=== PATIENT | female | born 1985 | race Caucasian/White ===

== ENCOUNTER 2024-05-10 06:14 | Day surgery (SDC) | payer OTHER ==
[2024-05-09 13:39] LABS: HEMATOCRIT 34.6 % (36.0-45.00); HEMOGLOBIN 11.1 g/dL (12.0-15.00); MEAN CELL VOLUME 77.3 fL (80.00-100.00); MEAN CORPUSCULAR HEMOGLOBIN 24.9 pg (27.00-32.0); MEAN CORPUSCULAR HGB CONC 32.2 g/dl (32.0-36.0); PLATELET COUNT 221 K/uL (150-450); RED BLOOD COUNT 4.48 M/uL (4.00-6.00); RED CELL DISTRIBUTION WIDTH 15.6 % (11.5-14.5)
[2024-05-09 14:18] LABS: INR 0.98; PARTIAL THROMBOPLASTIN TIME 25.6 SECONDS (22.0-34.0); PROTHROMBIN TIME 10.7 SECONDS (9.0-11.5)
[2024-05-09 14:31] LABS: ALBUMIN 3.7 gm/dL (3.4-5.0); BILIRUBIN TOTAL 0.26 mg/dL (0.3-1.2); CALCIUM 9.5 mg/dL (8.5-10.1); CREATININE SERUM 0.54 mg/dL (0.55-1.02); GFR 126.35; GLOBULINA 3.5 G/DL (2.4-3.5); POTASSIUM 3.94 mEq/L (3.5-5.1); TOTAL PROTEIN 7.2 gm/dL (6.4-8.2)
[2024-05-10] MEDS ORDERED: CEFOXITIN SODIUM 2,000 MG VIAL IV ONE (11:38)
[2024-05-10] MEDS ORDERED: POVIDONE-IODINE 118 ML BOTT TOP ONE (13:45)
[2024-05-10] MEDS ORDERED: MISOPROSTOL 100 MCG TABLET ONE (14:30)
[2024-05-10] MEDS ORDERED: MORPHINE SULFATE 4 MG/ML VIAL IV PRN (15:15)
[2024-05-10] MEDS ORDERED: PROMETHAZINE HCL 50 MG/ML AMPUL IM ONE (15:15)
== END 2024-05-10 17:25 | disposition home or self-care (01) ==
LOC: CIR.AMB 06:14
PROVIDERS: Obstetrics & Gynecology Maternal & Fetal Medicine; ATTEND Obstetrics & Gynecology
DX: O02.1 Missed abortion (principal); J45.909 Unspecified asthma, uncomplicated; R06.81 Apnea, not elsewhere classified; E16.2 Hypoglycemia, unspecified

== ENCOUNTER 2024-10-15 22:52 | Emergency (ER) | payer OTHER ==
[~2024-10-15] VITALS: Ht 157.5 cm; Wt 61.7 kg
[2024-10-15] MEDS ORDERED: PRENATA CHEWAB1 EACH (23:17)
[2024-10-16 01:32] LABS: BASO % 0.2 % (0.1-1.2); EOS # 0.07 (0.04-0.54); EOS % 0.6 % (0.7-7.0); LYMPH # 1.96 (1.18-3.74); LYMPH % 15.9 % (19.3-53.1); MEAN PLATELET VOLUME 11.60 fl (9.4-12.4); MONO # 1.01 (0.24-0.82); MONO % 8.2 % (4.7-12.5); NEUT # 9.23 (1.56-6.13); NEUT % 74.7 % (34.0-71.1); RED CELL DISTRIBUTION WIDTH 14.6 % (11.6-14.4)
[2024-10-16 01:45] LABS: INR 0.97
[2024-10-16 02:02] LABS: BUN CREA RATIO 23.0 (7.0-25.0); CREATININE SERUM 0.56 mg/dL (0.55-1.02); GFR 121.15; GLUCOSE FASTING 80.0 mg/dL (65-100); OSMOLALITY SERUM 277.0 MOSM/KG (275-295)
[2024-10-16 02:06] LABS: HCG QUANTITATIVE 58681.0 mUI/mL (1-3)
[2024-10-16 02:07] LABS: URINE APPEARANCE Clear; URINE BILIRRUBIN Negative (NEGATIVE); URINE BLOOD Small; URINE COLOR Yellow; URINE GLUCOSE Negative (NEGATIVE); URINE KETONE 15 (NEGATIVE); URINE LEUKOCYTE Negative; URINE NITRATE Negative; URINE PROTEIN Negative (NEGATIVE); URINE UROBILINOGEN 0.2 E.U./dl
[2024-10-16 02:11] LABS: URINE BACTERIA 1715.6 uL (0.0-1933); URINE EPITHELIAL CELLS 15.8 uL (0.0-38.8); URINE RBC 8.2 uL (0.0-20.8); URINE WBC 12.7 uL (0.0-23.2)
[2024-10-16 02:12] LABS: URINE CAST 0.29 uL (0.0-1.40)
== END 2024-10-16 04:46 ==
LOC: ER 23:13
PROVIDERS: General Practice
DX: O20.9 Hemorrhage in early pregnancy, unspecified (principal); Z3A.11 11 weeks gestation of pregnancy